=== PATIENT | male | born 1995 | race Caucasian/White ===

== ENCOUNTER 2020-08-24 08:46 | Emergency (ER) | payer OTHER ==
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
== END 2020-08-24 11:22 | disposition home or self-care (01) ==
LOC: MW.ED 08:46
DX: R07.81 Pleurodynia (principal); Z72.0 Tobacco use
CPT/HCPCS: 71101-26-LT; 71101-LT; 99283; 99283-25

== ENCOUNTER 2022-01-13 15:59 | Emergency (ER) | payer BC, OTHER ==
[2022-01-13] MEDS ORDERED: Lidocaine 1% 5 ML VIAL INJECT ONE (18:27)
[2022-01-13] MEDS ORDERED: Cephalexin 500 MG Cap PO STA (18:28)
[2022-01-13] MEDS ORDERED: Lidocaine 1% 50 ML MDV ONE (18:31)
== END 2022-01-13 19:02 | disposition home or self-care (01) ==
LOC: MW.ED 15:59
DX: L02.416 Cutaneous abscess of left lower limb (principal)
CPT/HCPCS: 10060; 87070; 87205; 99283; A9270; 87075; 87077; 87186

== ENCOUNTER 2023-09-03 06:52 | Emergency (ER) | payer OTHER ==
[2023-09-03] MEDS: Ketorolac 60 MG/2 ML SDV IM ONE (07:42)
== END 2023-09-03 08:20 | disposition home or self-care (01) ==
LOC: MW.ED 06:52
DX: S39.012A Strain of muscle, fascia and tendon of lower back, initial encounter (principal); S20.213A Contusion of bilateral front wall of thorax, initial encounter; I10 Essential (primary) hypertension; Z86.19 Personal history of other infectious and parasitic diseases; Z75.8 Other problems related to medical facilities and other health care; V49.10XA Passenger injured in collision with unspecified motor vehicles in nontraffic accident, initial encounter
CPT/HCPCS: 71046; 72100; 96372; 99283; J1885